=== PATIENT | female | born 1995 | race Caucasian/White ===

== ENCOUNTER 2022-02-26 19:34 | Emergency (ER) | payer OTHER ==
--- NOTE | 2022-02-26 20:55 | NUR ---
CALLED TO TRIAGE NO ANSWER
--- NOTE | 2022-02-26 21:30 | NUR ---
PATIENT NOT IN WAITING ROOM
== END 2022-02-26 21:56 | disposition left against medical advice (07) ==
LOC: ER 19:41
DX: Z53.21 Procedure and treatment not carried out due to patient leaving prior to being seen by health care provider (principal)